=== PATIENT | female | born 1950 | race Caucasian/White ===

== ENCOUNTER 2019-01-17 11:32 | Inpatient (IN) | payer MEDICARE, OTHER ==
[2019-01-17] MEDS ORDERED: Albuterol/Ipratropium 3.0-0.5 MG/3 ML Neb Soln NEB ONE (11:35)
--- NOTE | 2019-01-17 11:42 | EDM.PDOC ---
ED HPI GENERAL MEDICAL PROBLEM - General Stated Complaint: COMING FROM CLINIC Time Seen by Provider: 01/17/19 11:50 Source of Information: Reports: Patient, Provider History Limitations: Reports: No Limitations - History of Present Illness INITIAL COMMENTS - FREE TEXT/NARRATIVE: This 68 yo female patient was sent to the ED from the [facility] due to shortness of breath and an oxygen level of 82%. There was no work-up done in the clinic due to the patient's condition and was sent to the ED. The patient reports she has noticed increased shortness of breath over the past 2 days. The patient has also had a non-productive cough. The patient reports she has smoked cigarettes for the past 50 years and currently smokes 1 -1 1/2 packs of cigarettes per day. The patient reports she has been seen by Dr. Vides, but has never been placed on any medications to improve her breathing. The patient reports she was very tired yesterday which has continued through today. Onset Date: 01/16/19 Duration: Constant, Getting Worse Location: Reports: Chest Quality: Reports: Other Severity: Moderate Improves with: Reports: Rest Worsens with: Reports: Movement Context: Reports: Other Associated Symptoms: Reports: Chest Pain, Cough, Shortness of Breath - Related Data Allergies Allergy/AdvReac Type Severity Reaction Status Date / Time Penicillins Allergy Hives Verified 08/19/14 13:35 Sulfa (Sulfonamide Allergy Swelling Verified 08/19/14 13:35 Antibiotics) tetanus and diphtheria Allergy Swelling Verified 08/19/14 13:35 toxoids [tetanus & diphtheria toxoids] Home Meds: Home Meds . [No Known Home Meds] 08/19/14 [History] Social & Family History - Living Situation & Occupation Occupation: Retired ED ROS GENERAL - Review of Systems Review Of Systems: ROS reveals no pertinent complaints other than HPI. ED EXAM, GENERAL - Physical Exam Exam: See Below Exam Limited By: No Limitations General Appearance: Alert, WD/WN Eye Exam: Bilateral Eye: EOMI, Normal Inspection, PERRL Ears: Normal External Exam, Normal Canal, Hearing Grossly Normal, Normal TMs Nose: Normal Inspection, Normal Mucosa, No Blood Throat/Mouth: Normal Inspection, Normal Lips, Normal Teeth, Normal Gums, Normal Oropharynx, Normal Voice, No Airway Compromise Head: Atraumatic, Normocephalic Neck: Normal Inspection, Supple, Non-Tender, Full Range of Motion Respiratory/Chest: Decreased Breath Sounds, Other (expiratory grunting) Cardiovascular: Normal Peripheral Pulses, Regular Rate, Rhythm, No Edema, No Gallop, No JVD, No Murmur, No Rub GI/Abdominal: Normal Bowel Sounds, Soft, Non-Tender, No Organomegaly, No Distention, No Abnormal Bruit, No Mass (Female) Exam: Deferred Rectal (Female) Exam: Deferred Back Exam: Normal Inspection, Full Range of Motion, NT Extremities: Normal Inspection, Normal Range of Motion, Non-Tender, Normal Capillary Refill, No Pedal Edema Neurological: Alert, Oriented, CN II-XII Intact, Normal Cognition, Normal Gait, Normal Reflexes, No Motor/Sensory Deficits Psychiatric: Normal Affect, Normal Mood Skin Exam: Warm, Dry, Intact, Normal Color, No Rash Lymphatic: No Adenopathy Course - Vital Signs Last Recorded V/S: Last Vital Signs Temp Pulse Resp BP Pulse Ox 94 L 01/17/19 11:35 - Orders/Labs/Meds Orders: Active Orders 24 hr Category Date Time Status EKG Documentation Completion [RC] URGENT Care 01/17/19 11:33 Active RT Aerosol Therapy [RC] ASDIRECTED Care 01/17/19 11:35 Active CULTURE BLOOD [BC] Stat Lab 01/17/19 11:48 Received Azithromycin [Zithromax] 500 mg Med 01/17/19 12:49 Ordered Sodium Chloride 0.9% [Normal Saline] 250 ml IV ONETIME Medication Orders Azithromycin 500 mg/ Sodium (Chloride) 250 mls @ 250 mls/hr IV ONETIME ONE Stop: 01/17/19 13:48 Labs: Laboratory Tests 01/17/19 01/17/19 01/17/19 Range/Units 11:42 11:42 11:48 WBC 13.4 H (5.0-10.0) 10^3/uL RBC 5.13 (4.2-5.4) 10^6/uL Hgb 15.5 (12.0-16.0) g/dL Hct 47.7 H (37.0-47.0) % MCV 93.0 (80-100) fL MCH 30.2 (27.0-34.0) pg MCHC 32.5 L (33.0-35.0) g/dL Plt Count 275 (150-450) 10^3/uL Neut % (Auto) 84.0 H (42.2-75.2) % Lymph % (Auto) 7.7 L (20.5-50.1) % [place] % (Auto) 8.0 (2-8) % Eos % (Auto) 0.1 L (1.0-3.0) % Baso % (Auto) 0.2 (0.0-1.0) % Sodium 135 (135-145) mmol/L Potassium 4.6 (3.6-5.0) mmol/L Chloride 98 L (101-111) mmol/L Carbon Dioxide 27.0 (21.0-31.0) mmol/L Anion Gap 14.6 BUN 16 (7-18) mg/dL Creatinine 0.7 (0.6-1.3) mg/dL Est Cr Clr Drug Dosing TNP Estimated GFR (MDRD) > 60 BUN/Creatinine Ratio 22.85 Glucose 122 H (74-105) mg/dL Lactic Acid 0.9 (0.5-2.2) mmol/L Calcium 8.9 (8.4-10.2) mg/dl Total Bilirubin 0.8 (0.2-1.0) mg/dL AST 19 (10-42) IU/L ALT 15 (10-60) IU/L Alkaline Phosphatase 49 (42-121) IU/L Troponin I < 0.02 (0.00-0.02) ng/ml Total Protein 8.0 (6.7-8.2) g/dl Albumin 4.1 (3.2-5.5) g/dl Globulin 3.9 Albumin/Globulin Ratio 1.05 Meds: Medications Generic Name Dose Route Start Last Admin Trade Name Freq PRN Reason Stop Dose Admin Azithromycin 500 mg/ Sodium 250 mls @ 250 mls/hr 01/17/19 12:49 Chloride IV 01/17/19 13:48 ONETIME ONE Discontinued Medications Generic Name Dose Route Start Last Admin Trade Name Freq PRN Reason Stop Dose Admin Albuterol/Ipratropium 3 ml 01/17/19 11:35 01/17/19 11:51 Duoneb 3.0-0.5 Mg/3 Ml NEB 01/17/19 11:36 3 ml ONETIME ONE Administration Aspirin 324 mg 01/17/19 11:59 01/17/19 12:09 Aspirin PO 01/17/19 12:00 324 mg ONETIME ONE Administration Methylprednisolone Sodium Succinate 125 mg 01/17/19 12:47 Solu-Medrol IVPUSH 01/17/19 12:48 ONETIME ONE Departure - Departure Time of Disposition: 12:53 Disposition: Admitted As Inpatient 65 Clinical Impression: COPD exacerbation - Discharge Information *PRESCRIPTION DRUG MONITORING PROGRAM REVIEWED*: Not Applicable *COPY OF PRESCRIPTION DRUG MONITORING REPORT IN PATIENT THOMAS: Not Applicable Instructions: Chronic Obstructive Pulmonary Disease Exacerbation, [id number] Care Plan Goals: Discussed the patient's history, examination, treatment and x-ray results with Dr. Dias. Dr. Dias accepted the patient for continued evaluation and management as an inpatient at [facility]. - My Orders Last 24 Hours: My Active Orders 01/17/19 11:33 EKG Documentation Completion [RC] URGENT 01/17/19 11:35 RT Aerosol Therapy [RC] ASDIRECTED 01/17/19 11:48 CULTURE BLOOD [BC] Stat 01/17/19 12:49 Azithromycin [Zithromax] 500 mg Sodium Chloride 0.9% [Normal Saline] 250 ml IV ONETIME - Assessment/Plan Last 24 Hours: My Active Orders 01/17/19 11:33 EKG Documentation Completion [RC] URGENT 01/17/19 11:35 RT Aerosol Therapy [RC] ASDIRECTED 01/17/19 11:48 CULTURE BLOOD [BC] Stat 01/17/19 12:49 Azithromycin [Zithromax] 500 mg Sodium Chloride 0.9% [Normal Saline] 250 ml IV ONETIME
[2019-01-17] MEDS ORDERED: Aspirin 81 MG Tab.Chew PO ONE (11:59)
--- NOTE | 2019-01-17 11:59 | CR ---
Clinical history: 68-year-old female with chest pain and shortness of breath. 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 Multilevel disc disease and hypertrophic arthritic changes of spine. Normal cardiac silhouette without new cephalization of flow, signs of alveolar edema or dependent pleural fluid accumulation when compared 19 August 2014 exam. No new lung mass, hilar lymphadenopathy, or focal lobar pneumonia. No pneumothorax. CONCLUSION: No acute new cardiopulmonary abnormality since 19 August 2014.
[2019-01-17 12:17] LABS: ANION GAP 14.6; CHLORIDE,CL 98 mmol/L (101-111); SODIUM,NA 135 mmol/L (135-145)
[2019-01-17] MEDS ORDERED: methylPREDNISolone Sodium Succinate 125 MG/2 ML SDV IVPUSH ONE (12:47)
[2019-01-17] MEDS ORDERED: Azithromycin 500 MG in Sodium Chloride 0.9% 250 ML IV ONE (12:49)
[2019-01-17] MEDS ORDERED: Albuterol 0.083% 2.5 MG/3 ML Neb Soln NEB PRN (16:01)
[2019-01-17] MEDS ORDERED: Bisacodyl 10 MG Supp RECTAL PRN (16:02)
[2019-01-17] MEDS: Albuterol/Ipratropium 3.0-0.5 MG/3 ML Neb Soln NEB SCH ×2 (16:56→20:51)
[2019-01-17] MEDS ORDERED: methylPREDNISolone Sodium Succinate 40 MG/1 ML SDV IVPUSH SCH (18:00)
[2019-01-17] MEDS: methylPREDNISolone Sodium Succinate 40 MG/1 ML SDV IVPUSH SCH (20:51)
[2019-01-17] MEDS: Acetaminophen 325 MG Tab PO PRN (21:06)
[2019-01-17] MEDS: guaiFENesin/Dextromethorphan 100-10 MG/5 ML Soln 5 ML Cup PO PRN (21:11)
[2019-01-18] MEDS ORDERED: Sodium Chloride 0.9% 10 ML Syringe FLUSH PRN (04:43)
[2019-01-18] MEDS: methylPREDNISolone Sodium Succinate 40 MG/1 ML SDV IVPUSH SCH ×3 (04:48→21:02)
[2019-01-18] MEDS: Albuterol/Ipratropium 3.0-0.5 MG/3 ML Neb Soln NEB SCH ×4 (07:03→21:02)
[2019-01-18] MEDS: Acetaminophen 325 MG Tab PO PRN ×2 (09:04→22:49)
[2019-01-18] MEDS: Nicotine 21 MG/24 Hr Patch TRDERM SCH (09:06)
[2019-01-18] MEDS: guaiFENesin/Dextromethorphan 100-10 MG/5 ML Soln 5 ML Cup PO PRN (09:06)
[2019-01-18] MEDS: Enoxaparin 40 MG/0.4 ML Syringe SUBCUT SCH (09:07)
[2019-01-18] MEDS: Azithromycin 500 MG in Sodium Chloride 0.9% 250 ML IV SCH (13:36)
--- NOTE | 2019-01-18 14:56 | HP ---
CHIEF COMPLAINT: Shortness of breath and hypoxia. HISTORY OF PRESENT ILLNESS: Ms. Shankar is a 68-year-old female, who was seen at the [facility] this morning when she presented with the complaint of increasing shortness of breath for several days. On exam, she was found to have oxygen saturation of 82% and was sent directly to the emergency room for further management. In the ER, she stated that she had been ill for the last 2 days with shortness of breath and with some chest tightness due to her coughing. She had wheezing with grunting respirations. She had a cough that was on and off productive. No vomiting. No diarrhea. She was evaluated in the ER. She has a long history of smoking and it was felt that this was an exacerbation of COPD. She was started on antibiotics as well as steroids and bronchodilators and was referred for admission. PAST MEDICAL HISTORY: She has essentially been well. She has no chronic medical diagnoses and takes no chronic medications of any kind. Again, however, she is a lifelong smoker. PAST SURGICAL HISTORY: Appendectomy when she was in the 6th grade. Abdominal hysterectomy in 1981 for fibroids with dysfunctional uterine bleeding and a right ovarian cyst. Left ovary was left in place. FAMILY HISTORY: There is a family history of asthma and COPD. Both her parents are , her father in 2014 and her mother in 2016. She has 1 brother with type 2 diabetes and 1 sister with rheumatoid arthritis. She states that there is a family history of rheumatoid arthritis in the females. SOCIAL HISTORY: She is single, has 1 son who lives in [place], [place]. She grew up in the [facility]. From 1971 to 2011, she was in [place] and then returned to [place] to care for her aging parents who later both as above. She did a variety of jobs, working in some human service areas. She is a lifelong smoker. She started smoking at the age of 18 and has smoked 1 to 1-1/2 packs of cigarettes for the last 50 years, giving her a 50 to 15-opma-csch history of smoking. She only drinks an occasional social alcohol. Has never used smokeless tobacco. REVIEW OF SYSTEMS: She has not felt well for the last 2 days, has been short of breath with chest tightness. She states that starting 01/15/2019, she could not catch her breath at times. She felt stuffy. She tried pend-[id number]-csdbrtb medications. She got worse. She stated yesterday, she felt very tired and was falling asleep and was found to have low oxygen levels on evaluation at the clinic. She has been wheezing. She states that she has had a cough that is sometimes productive, otherwise not. Denies any fever. No hemoptysis. She has had her influenza vaccine and one of the pneumonia shots, she is just not sure which one. She has not had the herpes zoster vaccine. She states that she has had an occasional bout with bronchitis. Has never been officially diagnosed with COPD. She has taken advantage of the [facility] Lung Cancer Screening Program and went for 3 out of last 5 years consecutively and had negative workup and now is on a break before she is allowed to resume the cancer screening. She has had negative PPDs in the past as a job-related requirement. She has had no recent vision or hearing changes, although she does notice some light sensitivity for the last year and has been told that she has start of early cataracts on the right more than the left. She does develop some chest discomfort when she has her bronchitis. She said that she has had irritable bowel syndrome since the and she feels it is always stress-related and tends toward loose stools. Ten years ago, she fell while roller-skating with grandchildren and sustained a left wrist fracture, which was treated with casting. She has an injury to the right rotator cuff, but has never had surgery. CURRENT MEDICATIONS: None. ALLERGIES: Penicillins, which cause hives; sulfa antibiotics, which cause swelling; tetanus and diphtheria toxoids, which also cause swelling (local?). PHYSICAL EXAMINATION: General: She is a pleasant lady, sitting at the side of her bed. She was alert and oriented, in no distress. She was not coughing. She was able to participate throughout the visit. Vital Signs: Review of her vital signs at time of admission showed stable vital signs. Blood pressure was 92/44 on the left, 107/62 on the right; pulse 97; respiratory rate 20; oxygen saturation 87% on 0.5 L, which improved to 90% to 92% on 3 L; temperature 97.2. Weight 157 pounds 3.2 ounces, height 5 feet 1 inch. HEENT: Unremarkable. ENT was clear. Neck: No JVDs or bruits. No adenopathy. No thyromegaly. Chest: Showed scattered anterior and posterior inspiratory and expiratory wheezing. Heart: Showed regular rate and rhythm. Abdomen: Soft and benign. Extremities: Showed no edema. Neurological: She was intact. LABORATORY DATA: CBC showed white count of 13,000 with 84% neutrophils, hemoglobin and hematocrit were 15.5 and 47.7. Chemistry showed normal electrolytes. BUN and creatinine were 16 and 0.7 with GFR of more than 60. Nonfasting blood sugar 122. LFTs were within normal limits. Troponin was negative. One set of cultures was drawn, results are pending. A single-view chest x-ray taken in the ER showed no acute cardiopulmonary abnormality compared to previous study from 2014. IMPRESSION: A 68-year-old lady with 50 to 11-gtbh-fsmq history of smoking, never officially diagnosed with chronic obstructive pulmonary disease, presents with shortness of breath of several days' duration, hypoxia, and diffuse wheezing, all consistent with probable chronic obstructive pulmonary disease exacerbation. PLAN: Miss Shankar was admitted as an acute inpatient. In the emergency room, she had been given a bolus of Solu-Medrol 125 mg IV and was started on azithromycin 500 mg IV. These medications will be continued. 1. Tapering IV Solu-Medrol. She has started 40 mg IV every 8 hours. 2. She will continue on azithromycin 500 mg IV every 24 hours. 3. She is on scheduled and p.r.n. bronchodilator therapy with DuoNeb and albuterol, respectively. 4. She was placed on enoxaparin for VTE prophylaxis. 5. She was given nicotine patch 21 mg daily. CODE STATUS: Full code. We discussed smoking cessation. She really is not interested in stopping and is aware of the risks. As mentioned above, she has participated in the Lung Cancer Screening Program offered in [place]. She mentioned that she has had a plan to travel at the end of next week to visit her son and his family in [place]. We discussed the possibility of pushing off that date until she is doing better before she flies. Dr. Coy will discuss this with her again. CONDITION AT THE TIME OF ADMISSION: Hemodynamically stable. [facility] /[id number] [facility] HOSPITALJhonatan
--- NOTE | 2019-01-18 15:10 | PN ---
DATE: 01/18/2019 SUBJECTIVE: Mrs. Raad Velasquez is a 68-year-old female admitted with increasing shortness of breath and possible upper respiratory symptoms, noted to have acute hypoxic respiratory failure with saturation down to 82% on room air and chronic history of tobacco use. For the last 24 hours, she is continued on supplemental oxygen to maintain a saturation of 90% to 95%. She denies any ongoing chest pains. No shortness of breath. Continues to have mild upper respiratory symptoms with sinus congestion. Denies any abdominal pain. No nausea. No vomiting. No diarrhea. REVIEW OF SYSTEMS: Cardiovascular, respiratory, gastrointestinal, neurology, constitutional were all evaluated. PHYSICAL EXAMINATION: Vital Signs: Temperature of 98, pulse of 95, blood pressure of 119/56, respiratory rate of 20, saturating at 92% on 2 L of oxygen. General Appearance: The patient is alert and oriented to time, place, and person. Follows commands spontaneously. Cardiovascular System: S1, S2 heard with normal intensity. No gallops. Respiratory System: Clear to auscultation bilaterally except for mild crepitations at the bases. No wheeze. Abdomen: Soft. Bowel sounds positive. Nontender. No rigidity. Extremities: No edema of bilateral lower extremities. MEDICATIONS: Reviewed. Continue the DuoNeb 4 times a day and Zithromax IV daily, Lovenox 40 mg subcu daily, methylprednisone 40 mg IV q.8 hourly, nicotine transdermal patch. ASSESSMENT: 1. Chronic tobacco use. 2. Hypoxic respiratory failure. 3. Possible bronchitis. 4. Possible chronic obstructive pulmonary disease, undiagnosed. PLAN: 1. Acute bronchitis. The patient presents with increasing shortness of breath and was noted to be hypoxic at the time of admission. She is currently on IV antibiotic, Zithromax, continue the same. 2. Possible diagnosis of COPD which is undiagnosed. The patient has chronic history of tobacco use. The patient will be recommended to follow with Pulmonary Clinic as an outpatient once she is discharged to a get a pulmonary function test. She is currently on nebulizer treatment and also IV methylprednisone, we will gradually taper down the steroids. 3. Chronic tobacco use. The patient is currently on nicotine transdermal patch. The patient will be educated about tobacco cessation. 4. Respiratory failure with hypoxia. Continue with supplemental oxygen to maintain a saturation of 90% to 95%. She will need a walking desat study prior to getting discharged and a formal Pulmonary Clinic appointment for further evaluation of this hypoxia. 5. The patient will be encouraged to use incentive spirometer and flutter valve for better pulmonary toileting. [facility] /[id number]
[2019-01-19] MEDS: methylPREDNISolone Sodium Succinate 40 MG/1 ML SDV IVPUSH SCH (05:40)
[2019-01-19] MEDS: Acetaminophen 325 MG Tab PO PRN (05:52)
[2019-01-19 06:48] LABS: ANION GAP 14.8; CHLORIDE,CL 103 mmol/L (101-111); SODIUM,NA 140 mmol/L (135-145)
[2019-01-19] MEDS: Albuterol/Ipratropium 3.0-0.5 MG/3 ML Neb Soln NEB SCH ×2 (07:14→11:55)
[2019-01-19] MEDS: Nicotine 21 MG/24 Hr Patch TRDERM SCH (09:02)
[2019-01-19] MEDS: Enoxaparin 40 MG/0.4 ML Syringe SUBCUT SCH (09:04)
[2019-01-19] MEDS: Azithromycin 500 MG in Sodium Chloride 0.9% 250 ML IV SCH (13:33)
--- NOTE | 2019-01-19 14:59 | DISCH ---
ADMITTING DIAGNOSES: 1. Shortness of breath. 2. Acute bronchitis. 3. Tobacco abuse. 4. Acute hypoxic respiratory failure. 5. Possible chronic obstructive pulmonary disease exacerbation with undiagnosed chronic obstructive pulmonary disease. DISCHARGE DIAGNOSES: 1. Possible acute chronic obstructive pulmonary disease exacerbation, but no official diagnosis of chronic obstructive pulmonary disease made yet. She would need Pulmonary consultation as an outpatient for further diagnostic testing. 2. Acute hypoxic respiratory failure, resolved. 3. Acute bronchitis, improved with antibiotics. 4. Chronic tobacco use, on nicotine transdermal patch. HISTORY OF PRESENTING ILLNESS: Mrs. Olga Shankar is a 68-year-old female with medical history significant for chronic tobacco use, who was admitted to the hospital with complaints of increasing shortness of breath. She was noted to be acutely hypoxic at the time of admission with possible acute bronchitis and acute hypoxic respiratory failure with desaturation. The patient was treated with IV antibiotics, nebulizers, and IV methylprednisone, after which her symptoms improved. She was on nasal cannula oxygen and we were able to wean her off the oxygen. She got a walking desat study at the time of discharge, which showed saturation of 90% to 93% on rest and on exertion on room air. She did not require any home oxygen. The patient has chronic history of tobacco use. The patient is educated about tobacco cessation and strongly encouraged her to quit smoking, which she understands and verbalizes the same. We also prescribed nicotine transdermal patch to help her quit smoking. She was given 5 more days of oral Zithromax for her acute bronchitis. She was given Combivent inhalation as needed. She is advised to follow with primary care physician in next 1 week of time. She is also advised to follow with Pulmonary Clinic for further evaluation and treatment and further diagnostic approach for possible COPD given her chronic history of tobacco use, which she understands and verbalizes the same. DISCHARGE MEDICATIONS: Include: 1. Combivent 2-puff inhalation 3 times a day as needed for shortness of breath. 2. Zithromax 250 mg daily for the next 5 days. 3. Nicotine transdermal patch 21 mg daily for the next 10 days. 4. Mucinex 5 mL oral twice a day as needed for congestion. PHYSICAL EXAMINATION ON THE DAY OF DISCHARGE: Vital Signs: Temperature of 98, pulse of 73, blood pressure 116/56, respiratory rate of 20, saturating at 95% on room air. General Appearance: The patient is well oriented to time, place, and person. Follows commands spontaneously. Cardiovascular System: S1 and S2 heard with normal intensity. No gallops. Respiratory System: Clear to auscultation bilaterally. No wheeze. No crepitations. Abdomen: Soft. Bowel sounds positive. Nontender. No rigidity. Extremities: No edema in bilateral lower extremities. Neurology: No gross focal neurological deficits. CONDITION ON ADMISSION: Poor. CONDITION ON DISCHARGE: Stable. DISPOSITION: Discharged to home. DIET: General diet. FOLLOWUP: 1. Follow up with primary care physician in next 1 week of time. 2. Follow with Pulmonary Clinic in the next 4 weeks as scheduled. Spent over 35 minutes of time in evaluating and treating this patient and making discharge plans. [facility] /[id number]
== END 2019-01-19 14:40 | disposition home or self-care (01) | DRG 189 ==
LOC: DL.ED 11:32 → DL.MS 13:01 → UNDOADMOB 13:01 → OBSVTOIN 13:01 → INTOOBSV 13:01 → OBSVTOIN 16:02 → DL.MS 16:02
PROVIDERS: ADMIT Internal Medicine; ATTEND Internal Medicine
DX: J96.01 Acute respiratory failure with hypoxia (principal); J44.1 Chronic obstructive pulmonary disease with (acute) exacerbation; J44.0 Chronic obstructive pulmonary disease with (acute) lower respiratory infection; J20.9 Acute bronchitis, unspecified; F17.210 Nicotine dependence, cigarettes, uncomplicated; Z71.6 Tobacco abuse counseling; Z88.0 Allergy status to penicillin; Z88.2 Allergy status to sulfonamides; Z88.1 Allergy status to other antibiotic agents; Z88.7 Allergy status to serum and vaccine; R06.02 Shortness of breath
CPT/HCPCS: 36415; 71045; 80053; 83605; 84484; 85025; 87040; 93005; 94640 ×2; 96365; 96375; 99284; 99285; A9270; J0456; J2930; J7050; 80048; 85027; 94010; 94618; 94667; J1650; J2920; J7620-GY